=== PATIENT | male | born 1940 | race Caucasian/White ===

== ENCOUNTER 2022-07-23 06:00 | Outpatient (RCR) | payer MEDICARE, OTHER, SELFPAY | END 2022-08-21 23:59 | disposition home or self-care (01) | LOC: MPT 06:00 | PROVIDERS: Visit Provider Family Medicine | DX: R54 Age-related physical debility (principal); M62.81 Muscle weakness (generalized) | CPT/HCPCS: 97110; 97116; 97161; 97530 ==

== ENCOUNTER 2022-08-22 06:00 | Outpatient (RCR) | payer MEDICARE, OTHER, SELFPAY | END 2022-09-20 23:59 | disposition home or self-care (01) | LOC: MPT 06:00 | PROVIDERS: Visit Provider Family Medicine | DX: R54 Age-related physical debility (principal); M62.81 Muscle weakness (generalized) | CPT/HCPCS: 97110 ==

== ENCOUNTER 2024-04-27 06:00 | Outpatient (RCR) | payer MEDICARE, OTHER, SELFPAY | END 2024-05-21 23:59 | disposition home or self-care (01) | LOC: MPT 06:00 | PROVIDERS: Visit Provider Family Medicine | DX: M62.81 Muscle weakness (generalized) (principal); R53.81 Other malaise | CPT/HCPCS: 97110; 97162 ==

== ENCOUNTER 2024-05-22 06:00 | Outpatient (RCR) | payer MEDICARE, OTHER, SELFPAY | END 2024-06-21 23:59 | disposition home or self-care (01) | LOC: MPT 06:00 | PROVIDERS: Visit Provider Family Medicine | DX: M62.81 Muscle weakness (generalized) (principal) | CPT/HCPCS: 97110; 97112 ==

== ENCOUNTER 2024-06-22 05:00 | Outpatient (RCR) | payer MEDICARE, OTHER, SELFPAY | END 2024-07-21 23:59 | disposition home or self-care (01) | LOC: MPT 05:00 | PROVIDERS: Visit Provider Family Medicine | DX: M62.81 Muscle weakness (generalized) (principal) | CPT/HCPCS: 97110; 97112 ==

== ENCOUNTER 2024-07-22 05:00 | Outpatient (RCR) | payer MEDICARE, OTHER, SELFPAY | END 2024-08-21 23:59 | disposition home or self-care (01) | LOC: MPT 05:00 | PROVIDERS: Visit Provider Family Medicine | DX: M62.81 Muscle weakness (generalized) (principal) | CPT/HCPCS: 97110; 97112 ==

== ENCOUNTER 2024-08-22 05:00 | Outpatient (RCR) | payer MEDICARE, OTHER, SELFPAY | END 2024-09-20 23:59 | disposition home or self-care (01) | LOC: MPT 05:00 | PROVIDERS: Visit Provider Family Medicine | DX: M62.81 Muscle weakness (generalized) (principal) | CPT/HCPCS: 97110; 97112 ==

== ENCOUNTER 2024-09-21 05:00 | Outpatient (RCR) | payer MEDICARE, OTHER, SELFPAY | END 2024-10-21 23:59 | disposition home or self-care (01) | LOC: MPT 05:00 | PROVIDERS: Visit Provider Family Medicine | DX: M62.81 Muscle weakness (generalized) (principal) | CPT/HCPCS: 97110; 97112 ==

== ENCOUNTER 2024-10-22 05:00 | Outpatient (RCR) | payer MEDICARE, OTHER, SELFPAY | END 2024-11-21 23:59 | disposition home or self-care (01) | LOC: MPT 05:00 | PROVIDERS: Visit Provider Family Medicine | DX: M62.81 Muscle weakness (generalized) (principal) | CPT/HCPCS: 97110; 97112 ==

== ENCOUNTER 2024-11-22 05:00 | Outpatient (RCR) | payer MEDICARE, OTHER, SELFPAY | END 2024-12-21 23:59 | disposition home or self-care (01) | LOC: MPT 05:00 | PROVIDERS: Visit Provider Family Medicine | DX: M62.81 Muscle weakness (generalized) (principal) | CPT/HCPCS: 97110; 97112; 97530 ==

== ENCOUNTER 2025-01-17 07:57 | Outpatient (RCR) | payer MEDICARE, OTHER, SELFPAY | END 2025-01-21 23:59 | disposition home or self-care (01) | LOC: MPT 07:57 | PROVIDERS: Visit Provider Family Medicine | DX: M62.81 Muscle weakness (generalized) (principal) | CPT/HCPCS: 97110; 97112; 97530 ==

== ENCOUNTER 2025-02-09 08:05 | Outpatient (RCR) | payer MEDICARE, OTHER, SELFPAY | END 2025-02-09 13:33 | disposition home or self-care (01) | LOC: MPT 08:05 | PROVIDERS: Visit Provider Family Medicine | DX: M62.81 Muscle weakness (generalized) (principal) | CPT/HCPCS: 97110; 97112 ==